=== PATIENT | female | born 1950 | race Caucasian/White ===

== ENCOUNTER 2024-05-27 05:38 | Day surgery (SDC) | payer MEDICARE, BC ==
[2024-05-23 11:41] LABS: BASOPHILS % (AUTO) 0.5 % (0-1); EOSINOPHILS # (AUTO) 0.1 X10'3 (0-0.9); EOSINOPHILS % (AUTO) 1.4 % (0-6); HEMATOCRIT 40.8 % (35.0-45.0); HEMOGLOBIN 13.8 g/dl (12.0-16.0); LYMPHOCYTES % (AUTO) 16.7 % (21-51); MEAN CORPUSCULAR HEMOGLOBIN 30.4 PG (27.0-31.0); MEAN CORPUSCULAR HGB CONC 33.8 g/dL (33.0-36.5); MEAN PLATELET VOLUME 8.6 FL (7.4-10.4); MONOCYTES # (AUTO) 0.4 X10'3 (0-0.9); MONOCYTES % (AUTO) 6.2 % (2-12); NEUTROPHILS # (AUTO) 4.7 X10'3 (1.8-7.7); NEUTROPHILS % (AUTO) 75.2 % (42-75); PLATELET COUNT 194 X10'3 (140-440); RED BLOOD COUNT 4.53 X10'6 (4.20-5.60); WHITE BLOOD COUNT 6.3 X10'3 (4.5-11.0)
[2024-05-23 11:42] LABS: ALANINE AMINOTRANSFERASE 28 U/L (12-78); ALBUMIN 3.9 G/DL (3.4-5.0); ALKALINE PHOSPHATASE 107 IU/L (46-116); ANION GAP 10 (8-16); ASPARTATE AMINO TRANSFERASE 15 U/L (10-37); BILIRUBIN,TOTAL 0.6 MG/DL (0.1-1.0); BLOOD UREA NITROGEN 9 MG/DL (7-18); BUN/CREATININE RATIO 11.8 (10.0-20.0); CALCIUM 9.2 MG/DL (8.5-10.1); CHLORIDE 105 MMOL/L (99-107); CREATININE 0.76 MG/DL (0.40-0.90); GLUCOSE 83 MG/DL (70-104); POTASSIUM 3.8 MMOL/L (3.5-5.1); SODIUM 145 MMOL/L (135-145); TOTAL CARBON DIOXIDE 30.5 MMOL/L (24-32); TOTAL PROTEIN 7.7 G/DL (6.4-8.2); eGFR 75 ML/MIN
[~2024-05-27] VITALS: Ht 162.6 cm; Wt 56.7 kg
[2024-05-27 05:30] VITALS: BP 139/70; PULSE 70; RESP 16; TEMP 98; O2SAT 100
[~2024-05-27 05:38] MED LIST: NO HOME MEDS
[2024-05-27] MEDS: vancomycin/NS 1 GM ADD-VANTAGE 250 ML X 1 DOSE IV ONE (06:05)
[2024-05-27] MEDS: famotidine 20mg tablet PO ONE (06:05)
[2024-05-27] MEDS: ringers solution, lacted 1,000 ML IV SCH (06:05)
[2024-05-27] MEDS ORDERED: BUPIVAcaine 0.25% w/Epi /PF 30ml vial ONE (06:58)
[2024-05-27] MEDS ORDERED: LIDOcaine 1% 30ml preserv. free vial ONE (06:58)
[2024-05-27] MEDS ORDERED: BUPIVAcaine 2.5mg/ml inj 50ml vial (contains preservative) ONE (06:59)
[2024-05-27] MEDS ORDERED: sevoflurane 250ml liquid IH ONE (07:38)
[2024-05-27] MEDS ORDERED: fentaNYL/PF 50MCG/1 ML 2ML syringe ONE (07:47)
[2024-05-27] MEDS ORDERED: LIDOcaine 2% (20mg/ml) 5ml vial ONE (08:35)
[2024-05-27] MEDS ORDERED: propofol inj 20 ML IV ONE (08:35)
[2024-05-27] MEDS ORDERED: midazolam 1 mg/ML 2ml injection ONE (08:35)
[2024-05-27] MEDS ORDERED: dexamethasone sod phosphate 4mg/ml inj. ONE (08:36)
[2024-05-27] MEDS ORDERED: ondansetron/PF 4mg/2ml inj ONE (08:36)
[2024-05-27 08:53] VITALS: BP 141/82; PULSE 66; RESP 16; O2SAT 100
[2024-05-27] MEDS ORDERED: morphine 2 MG/ML inj. syringe IV PRN (08:55)
[2024-05-27] MEDS ORDERED: ondansetron/PF 4mg/2ml inj IV PRN (08:55)
[2024-05-27] MEDS ORDERED: proCHLORperazine 10 MG/2 ml inj IV PRN (08:55)
[2024-05-27] MEDS ORDERED: acetaminophen 1,000mg/100ml IV 100 ML IV ONE (08:55)
[2024-05-27] MEDS ORDERED: labetalol 20mg/4ml (5mg/ml) syringe IV PRN (08:55)
[2024-05-27] MEDS ORDERED: hydrALAZINE 20mg/ml inj. IV PRN (08:55)
[2024-05-27] MEDS ORDERED: meperidine/PF 25mg/ml syringe IV PRN ×3 (08:55)
[2024-05-27] MEDS ORDERED: morphine 4 MG/ML inj SYRINge IV PRN (08:55)
[2024-05-27] MEDS ORDERED: ringers solution, lacted 1,000 ML IV SCH (08:55)
[2024-05-27 09:00] VITALS: BP 152/75; PULSE 68; RESP 12; O2SAT 98
[2024-05-27 09:10] VITALS: BP 149/72; PULSE 67; RESP 11; O2SAT 97
[2024-05-27 09:20] VITALS: BP 148/77; PULSE 67; RESP 11; O2SAT 98
[2024-05-27 09:30] VITALS: BP 158/76; PULSE 66; RESP 10; O2SAT 98
== END 2024-05-27 10:03 | disposition home or self-care (01) ==
LOC: PAS 05:38
PROVIDERS: ATTEND Surgery
DX: R92.8 Other abnormal and inconclusive findings on diagnostic imaging of breast (principal); N60.12 Diffuse cystic mastopathy of left breast; N60.11 Diffuse cystic mastopathy of right breast; Z79.899 Other long term (current) drug therapy; Z98.890 Other specified postprocedural states; Z90.710 Acquired absence of both cervix and uterus
CPT/HCPCS: 19120; 36415; 80053; 82948; 85025; A4215; A4618; A6258; A6402; A7000; J1100; J2003; J2250; J2405; J2704; J3010; J3370; J3490; J7030; J7120; Z7506; Z7508; Z7512; Z7610; A6449; S0020